=== PATIENT | male | born 1980 | race Asian ===

== ENCOUNTER 2018-11-19 10:55 | Emergency (ER) | payer OTHER ==
[2018-11-19 11:43] LABS: BASOPHILS # (AUTO) 0.1 10^3/uL (0.0-0.1); BASOPHILS % (AUTO) 1.1 %; EOSINOPHILS # (AUTO) 0.2 10^3/uL (0.0-0.7); EOSINOPHILS % (AUTO) 4.5 %; HGB - HEMOGLOBIN 16.8 g/dL (14.0-18.0); LYMPHOCYTES # (AUTO) 1.5 10^3/uL (1.5-3.5); LYMPHOCYTES % (AUTO) 32.3 %; MEAN CORPUSCULAR HEMOGLOBIN 32.4 pg (27.0-31.0); MEAN CORPUSCULAR HGB CONC 34.7 g/dL (32.0-36.0); MEAN CORPUSCULAR VOLUME 93.3 fL (80.0-94.0); MEAN PLATELET VOLUME 8.7 fL (7.4-11.4); MONOCYTES # (AUTO) 0.3 10^3/uL (0.0-1.0); MONOCYTES % (AUTO) 7.3 %; NEUTROPHILS # (AUTO) 2.5 10^3/uL (1.5-6.6); NEUTROPHILS % (AUTO) 54.6 %; PLT - PLATELET COUNT 221 10^3/uL (130-450); RED BLOOD COUNT 5.19 10^6/uL (4.70-6.10); RED CELL DISTRIBUTION WIDTH 11.8 % (12.0-15.0); WHITE BLOOD COUNT 4.7 x10^3/uL (4.8-10.8)
--- NOTE | 2018-11-19 11:50 | XRAY Report ---
Reason: chest pain Procedure Date: 11/19/2018 Accession Number: [id number] / [id number] Procedure: XR - Chest 1 View X-Ray CPT Code: 39345 FULL RESULT: EXAM: CHEST RADIOGRAPHY EXAM DATE: 11/19/2018 11:43 AM. CLINICAL HISTORY: Chest pain. COMPARISON: None. TECHNIQUE: 1 view. FINDINGS: Lungs/Pleura: No focal opacities evident. No pleural effusion. No pneumothorax. Mediastinum: Within exam limitations, the cardiomediastinal contour is normal. Other: None. IMPRESSION: Normal single view chest. RADIA
[2018-11-19 11:57] LABS: ALBUMIN 4.3 g/dL (3.2-5.5); ALBUMIN/GLOBULIN RATIO 1.4 (1.0-2.2); BILIRUBIN,TOTAL 1.2 mg/dL (0.2-1.0); CREATININE 1.1 mg/dL (0.6-1.2); TOTAL PROTEIN 7.4 g/dL (6.7-8.2)
--- NOTE | 2018-11-19 12:54 | ED Physician Documentation ---
History of Present Illness - Stated complaint Stated Complaint: HBP - Chief complaint Chief Complaint: General - History obtained from History obtained from: Patient - History of Present Illness Timing: Chronic (For many years now [place] in the range over 150/100. It is asymptomatic. They never started meds for it. 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 He has no acute complaints, no chest pain, shortness of breath, pedal edema, or urinary issues. He's never been on blood pressure medicine.) Review of Systems Constitutional: denies: Fever, Chills, Fatigue Nose: denies: Rhinorrhea / runny nose Cardiac: denies: Chest pain / pressure, Palpitations Respiratory: denies: Dyspnea PD PAST MEDICAL HISTORY - Past Medical History Past Medical History: No - Past Surgical History Past Surgical History: No - Present Medications Home Medications: Ambulatory Orders Medication Instructions Recorded Confirmed Lisinopril 10 mg PO DAILY #30 tablet 11/19/18 - Allergies Allergies/Adverse Reactions: Allergies Allergy/AdvReac Type Severity Reaction Status Date / Time No Known Drug Allergies Allergy Verified 11/19/18 11:04 - Social History Does the pt smoke?: No Smoking Status: Never smoker Does the pt drink ETOH?: Yes Does the pt have substance abuse?: No - Immunizations Immunizations are current?: Yes - POLST Patient has POLST: No PD ED PE NORMAL - Vitals Vital signs reviewed: Yes - General General: Alert and oriented X 3, No acute distress - HEENT HEENT: PERRL, EOMI - Neck Neck: Supple, no meningeal sign, No bony TTP - Cardiac Cardiac: RRR, No murmur - Respiratory Respiratory: No respiratory distress, Clear bilaterally - Abdomen Abdomen: Normal bowel sounds, Soft, Non tender - Back Back: No CVA TTP, No spinal TTP - Derm Derm: Normal color, Warm and dry - Extremities Extremities: No edema, No calf tenderness / cord - Neuro Neuro: Alert and oriented X 3, Normal speech Results - Vitals Vitals: Vital Signs - 24 hr 11/19/18 11/19/18 11:04 12:32 Temperature 36.6 C Heart Rate 66 67 Respiratory 15 14 Rate Blood Pressure 162/137 H 167/115 H O2 Saturation 99 100 Oxygen O2 Source Room air - EKG (time done) 1118 Rate: Rate (enter#) (69) Rhythm: NSR [place]: Normal Intervals: Normal OR QRS: Normal Ischemia: Normal ST segments Computer interpretation: Agree with computer - Labs Labs: Laboratory Tests 11/19/18 11/19/18 11:38 11:38 WBC 4.7 L RBC 5.19 Hgb 16.8 Hct 48.4 MCV 93.3 MCH 32.4 H MCHC 34.7 RDW 11.8 L Plt Count 221 MPV 8.7 Neut # (Auto) 2.5 Lymph # (Auto) 1.5 [place] # (Auto) 0.3 Eos # (Auto) 0.2 Baso # (Auto) 0.1 Absolute Nucleated RBC 0.00 Nucleated RBC % 0.0 Sodium 137 Potassium 3.9 Chloride 99 L Carbon Dioxide 29 Anion Gap 9.0 BUN 12 Creatinine 1.1 Estimated GFR (MDRD) 75 L Glucose 111 H Calcium 9.0 Total Bilirubin 1.2 H AST 42 ALT 75 H Alkaline Phosphatase 61 Total Protein 7.4 Albumin 4.3 Globulin 3.1 Albumin/Globulin Ratio 1.4 Lipase 32 PD MEDICAL DECISION MAKING - ED course ED course: This is a young man who has long-standing asymptomatic hypertension. He is taking a stimulant pre-workout drink and he is advised to stop that. Started on lisinopril pending follow-up. Departure - Departure Disposition: 01 Home, Self Care Clinical Impression: Essential hypertension Condition: Good Record reviewed to determine appropriate education?: Yes Instructions: ED Hypertension New Begin Tx Prescriptions: Lisinopril 10 mg PO DAILY #30 tablet Comments: FOLLOWUP WITH YOUR DOCTOR ON BASE WITHIN 1 WEEK FO BLOOD PRESSURE CHECK. RETURN FOR CHEST PAIN, SHORTNESS OF BREATH OR OTHER NEW ISSUES
[2018-11-19 13:00] VITALS: BP 157/117
== END 2018-11-19 12:59 | disposition home or self-care (01) ==
LOC: ED 10:55
DX: I10 Essential (primary) hypertension (principal)
CPT/HCPCS: 36415; 71045; 80053; 83690; 85025; 93005; 99284

== ENCOUNTER 2020-06-06 19:21 | Emergency (ER) | payer OTHER ==
[2020-06-06 19:27] VITALS: BP 170/100
--- OUTSIDE RECORDS SUMMARY | 2020-06-06 20:05 | EXTERNAL MEDICAL SUMMARY RPT | Continuity of Care Document ---
:1980 Demographics Phone Unavailable Preferred Language Unknown Marital Status Unknown Evangelical Affiliation Unknown Race Unknown Ethnic Group Unknown Author Organization [facility] Address [address] [place] [address] Phone Social History date description facility [phone]
--- NOTE | 2020-06-06 20:18 | XRAY Report ---
PROCEDURE: Knee 4 View LT INDICATIONS: L knee inj TECHNIQUE: 3 views of the left knee(s) were acquired. COMPARISON: None. FINDINGS: Bones: No fractures or dislocations. No suspicious bony lesions. Soft tissues: No joint effusion. No suspicious soft tissue calcifications. IMPRESSION: No trauma found, source of pain is not identified. Reviewed by: Rosalino Leal MD on 06/06/2020 8:17 PM PDT Approved by: Rosalino Leal MD on 06/06/2020 8:17 PM PDT Station ID: [id number]
[2020-06-06] MEDS ORDERED: HYDROcod/ACET 5/325 Prepack 4 PO STA (20:28)
--- NOTE | 2020-06-06 20:30 | ED Physician Documentation ---
PD HPI LOWER EXT INJURY - Stated complaint Stated Complaint: LEFT KNEE PX - Chief complaint Chief Complaint: Ext Problem - History obtained from History obtained from: Patient - Additional information Additional information: 40-year-old gentleman with history of ACL repair and meniscus repair on the right about 10 years ago. Tonight was playing basketball and twisted and felt a pop in the left knee. Now can barely walk on it. Pain is lateral. No other injuries. Review of Systems Constitutional: reports: Reviewed and negative Eyes: reports: Reviewed and negative Ears: reports: Reviewed and negative Nose: reports: Reviewed and negative Throat: reports: Reviewed and negative Cardiac: reports: Reviewed and negative Respiratory: reports: Reviewed and negative PD PAST MEDICAL HISTORY - Past Surgical History Past Surgical History: No - Present Medications Home Medications: Ambulatory Orders Medication Instructions Recorded Confirmed lisinopriL [Lisinopril] 10 mg PO DAILY #30 tablet 11/19/18 HYDROcod/ACETAM 5/325 [[place] 5/325] 1 - 2 tab PO Q6H PRN #10 tablet 06/06/20 Ibuprofen [Motrin] 800 mg PO Q8H PRN #10 tablet 06/06/20 - Allergies Allergies/Adverse Reactions: Allergies Allergy/AdvReac Type Severity Reaction Status Date / Time No Known Drug Allergies Allergy Verified 06/06/20 19:23 - Social History Does the pt smoke?: No Smoking Status: Never smoker Does the pt drink ETOH?: Yes Does the pt have substance abuse?: No - Immunizations Immunizations are current?: Yes - POLST Patient has POLST: No PD ED PE NORMAL - Vitals Vital signs reviewed: Yes - General General: Alert and oriented X 3, No acute distress - Extremities Extremities: Other (Left knee shows a modest effusion and mild lateral tenderness, ACL, PCL, LCL, MCL testing is painless and without laxity. Negative grind testing.) - Neuro Neuro: Alert and oriented X 3, Normal speech Results - Vitals Vitals: Vital Signs - 24 hr 06/06/20 19:23 Temperature 36.5 C Heart Rate 100 Respiratory 16 Rate Blood Pressure 170/100 H O2 Saturation 99 Oxygen O2 Source Room air - Rads (name of study) 4v L knee Radiology: EMP read contemporaneously (NAD) PD MEDICAL DECISION MAKING - ED course ED course: 40-year-old gentleman with with knee sprain, examination shows an effusion but no other evidence of severe ligamentous or meniscal injury. He was placed in a knee immobilizer. X-rays were normal. Orthopedic follow-up was advised. Departure - Departure Disposition: 01 Home, Self Care Clinical Impression: Internal derangement of knee joint Qualifiers: Laterality: left Qualified Code(s): M23.92 - Unspecified internal derangement of left knee Condition: Good Record reviewed to determine appropriate education?: Yes Instructions: ED Sprain Knee Collateral Ligaments Prescriptions: Ibuprofen [Motrin] 800 mg PO Q8H PRN #10 tablet PRN Reason: PAIN &/OR FEVER HYDROcod/ACETAM 5/325 [[place] 5/325] 1 - 2 tab PO Q6H PRN #10 tablet PRN Reason: Pain Comments: Your examination suggest against a serious internal injury of the left knee. The x-ray is normal. Unless rapidly better I recommend you follow-up with one of the orthopedic surgeons on [facility], Dr. Kwong or Dr. Horn. You can call the [facility] hospital tomorrow to make an appointment. Return for new or worsening symptoms. Forms: Activity restrictions Discharge Date/Time: 06/06/20 20:47
== END 2020-06-06 20:47 | disposition home or self-care (01) ==
LOC: ED 19:21
DX: M23.92 Unspecified internal derangement of left knee (principal)
CPT/HCPCS: 99283

== ENCOUNTER 2021-01-11 15:30 | Outpatient (CLI) | payer OTHER ==
[2021-01-11 16:23] VITALS: BP 134/78
--- NOTE | 2021-01-11 16:23 | SLEEP CARE CONSULTATION ---
Information from patient questionnaire entered by Robert Mcclendon MA. I have reviewed and concur with the information entered by Robert Mcclendon MA. This document represents the service I personally performed and the decisions made by me, Kelsea Marie ARNP. History of Present Illness Service Date and Time: 01/11/2021 1530 Reason for Visit: New patient (02/2014) Chief Complaint: reports: Unrefreshed sleep, Snoring, Excessive daytime sleepiness, Observed pauses in breathing, Fatigue, Frequent awakenings at night Date of Onset: 6 -7 years Usual bedtime: 10 - 11 pm Time it takes to fall asleep: 20 - 30 minutes Snores at night: Yes Observed to quit breathing while asleep: Yes Sleeps alone due to snoring: Yes Number of times waking at night: 6-8 Reasons for waking at night: reports: Snoring, Gasping for air, Other (unknown reasons) Toss, Turn, or Twitch while sleeping: Yes Recalls having dreams: Yes Usually gets out of bed at: 0700 - 0800 Feels refreshed in the morning: No Morning headache: Yes (almost every morning; gone after lunch, 2-4 pm) Sleepy or fatigued during the day: Yes Ever fallen asleep while driving: Yes (drowsy driving, fell asleep at stoplight, no accidents) Takes day naps: Yes (on weekends sometimes) Dreams during day naps: Yes Prior sleep studies: No Additional HPI information: I had the pleasure of seeing AUSTIN TRAORE today regarding the possibility of him having a sleep disorder. His current complaints are excessive daytime sleepiness, fatigue, frequent night awakenings, observed pauses in breathing, snoring and unrefreshed sleep. He has snored for a long time and is so loud his will sleep in a different room. She has seen him pauses in breathing and he has woke himself up snoring. He states he wakes up feeling tired even after a 6- 8 hours night of sleep. He is tired during the day and has fallen asleep when sitting at a stoplight once. - Parasomnia Symptoms Ever been unable to move upon waking from sleep: No Walks in sleep: No Talks in sleep: Yes Ever acted out dreams in sleep: Yes Ever felt weak in the knees when startled or emotional: Yes (has not fallen to ground, has felt like muscle weak/arms weak) Bothered by creepy, crawly, restless sensations in legs: No Problems with memory or concentration: Yes (both) Subjective Current [place] Sleepiness Scale score: 24 (in 2020) Past Medical History Past Medical History: reports: Hypertension Social History The patient's occupation is a . Patient is and lives in [place]. Have you smoked in the past 12 months: No Alcohol use: Yes Alcohol amount and frequency: 2 x month Caffeine use: Yes Caffeine amount and frequency: 2 x weekly Family History Family history of sleep disordered breathing: No Family Hx Sleep Apnea: Father: Snoring, Sibling: Snoring Allergies and Home Medications Drug allergies reviewed: Yes (NKDA) Home medication list reviewed: Yes Allergy and home medication list: Lisinopril 20 mg Laura, prn for allergies Review of Systems Cardiovascular: reports: high blood pressure Gastrointestinal: denies: heartburn Neurological: reports: headaches Ear/Nose/Throat: reports: dry mouth/throat (daily in the mornings), wisdom teeth removed. denies: injury to nose, tonsillectomy Endocrine: denies: thyroid disease Physical Exam Vital signs obtained and entered by: TE Bell Blood Pressure: 134/78 (left) Cuff size: wrist Heart Rate: 76 O2 Saturation: 98 (with mask) Height: 5 ft 7 in Weight: 147 lb (with boots) Body Mass Index: 23.0 BMI Classification: Healthy weight Neck circumference: 13.5 (inches) Mouth and throat: narrow oropharynx Soft palate: long Hard palate: normal Uvula: normal Uvula visualization: 50% Mallampati Class II Tongue: enlarged in size with teeth hudson on lateral edges Tonsils: small Neck: normal w/o lymphadenopathy or thyromegaly Heart: regular rate and rhythm Lungs: clear bilaterally Impression and Plan 1. Suspected Obstructive Sleep Apnea-Hypopnea Syndrome, as suggested by a history of loud and irregular snoring, observed cessation of breath while asleep, gasping or choking in sleep, morning headache, frequent awakening during the night, unrefreshed sleep, cognitive impairment, and excessive daytime sleepiness. Narrow oropharynx and obesity are common predisposing factors for obstructive sleep apnea-hypopnea syndrome. I recommend proceeding to polysomnography to confirm the diagnosis and to assess severity. If the patient has significant sleep disordered breathing, a manual CPAP titration study will also be performed to find the optimal treatment pressure. I informed the patient of what the sleep studies involve and after some discussion, obtained agreement to proceed. The pathophysiology of obstructive sleep apnea-hypopnea syndrome was discussed with the patient and health risks of cardiovascular and cerebrovascular disease if not treated. AAS brochure for obstructive sleep apnea-hypopnea syndrome given and reviewed. Risks of drowsy driving discussed in detail and patient advised to avoid long distance driving and to lathe puller at the first sign of drowsiness. Patient agreed to plan. * Schedule polysomnography +- manual CPAP titration study and return in 1-2 weeks after the study to discuss result and initiate therapy. * Avoid long distance driving or driving when feeling sleepy. * Avoid alcohol, sedative and muscle relaxant around bedtime. * Attempt to lose weight. * Review instructions provided by trained office staff on how to prepare for the sleep study. * Return for follow-up after sleep study completed. Counseling Topics: Weight control Visit Type: In Office Time Spent with Patient (minutes): 31 Provider Statement: I spent 100% of the Face to Face Visit with the patient with greater than 50% spent counseling the patient and coordination of care.
== END 2021-01-11 15:31 | disposition home or self-care (01) ==
LOC: SC 15:30
PROVIDERS: ATTEND Nurse Practitioner Family
DX: R06.83 Snoring (principal); R06.81 Apnea, not elsewhere classified; G47.8 Other sleep disorders; R51.9 Headache, unspecified; R41.89 Other symptoms and signs involving cognitive functions and awareness; G47.10 Hypersomnia, unspecified
CPT/HCPCS: 99203; 99212

== ENCOUNTER 2021-01-27 14:37 | Outpatient (CLI) | payer OTHER | END 2021-01-27 14:38 | disposition home or self-care (01) | LOC: SC 14:37 | PROVIDERS: ATTEND Nurse Practitioner Family | DX: G47.33 Obstructive sleep apnea (adult) (pediatric) (principal) | CPT/HCPCS: 95806 ==

== ENCOUNTER 2021-02-14 15:29 | Outpatient (CLI) | payer OTHER ==
[2021-02-14 16:09] VITALS: BP 123/84
--- NOTE | 2021-02-14 16:09 | SLEEP CARE CONSULTATION ---
Information from patient questionnaire entered by Robert Mcclendon MA. I have reviewed and concur with the information entered by Robert Mcclendon MA. This document represents the service I personally performed and the decisions made by , Kelsea Marie ARNP. History of Present Illness Service Date and Time: 02/14/2021 1529 Initial [place] Sleepiness Scale score: 23 (2020) Current [place] Sleepiness Scale score: 23 Additional HPI information: AUSTIN TRAORE returns for follow up and results of the recently performed home sleep study. I explained the pathophysiology behind obstructive sleep apnea. We then spent quite a bit of time discussing different treatment options. For mild obstructive sleep apnea, surgery and oral appliance are alternatives to nasal CPAP therapy but in moderate or severe cases, nasal CPAP is the most effective and reliable treatment. I reviewed the impact of weight changes on sleep apnea and strongly recommended losing weight. After some discussion, the patient opted to go with the nasal CPAP therapy. Nasal autoCPAP set at 4-15 cmH20 will be ordered with rationale explained. A manual titration study will be ordered if unable to find optimal pressure with office adjustments. I explained how CPAP machine works and what to expect when using the machine. Using CPAP every night in order to get used to it was emphasized. Patient advised to put CPAP mask on before getting into bed so as not to fall asleep without CPAP. To assist acclimation to CPAP use, it could also be used for a short time during day while reading or watching TV. The patient was instructed to call the CPAP supplier to discuss any mechanical problem that may occur. If the mask given is uncomfortable or is difficult to keep on through the night even with adjustment, contact the CPAP supplier as many will replace with another mask style if notified before 30 days. If snoring or perceives is not getting enough air or too much air from the machine, notify this office. AASM patient education PAP tips reviewed and given to patient. Patient counseled not drink alcohol less than 4 hours before bedtime as it can increase snoring and apnea. Patient was cautioned about risks of drowsy driving until sleepiness sy mptoms resolve. Sleep Study - Results Prior sleep studies: No Polysomnography/Home Sleep Study results: Physician Impression: The quality of the study is good. The length of the study is adequate (> 240 minutes). Please also see the tabulated and graphic data. 1. Obstructive Sleep Apnea-Hypopnea (ICD-10 G47.33), severe, with an AHI of 50.8/hr and jose SaO2 of 69%. During the study, the patient had 167 apneas (167 obstructive, 0 central, 0 mixed) and 69 hypopneas. The longest episode lasted 81.0 seconds. The respiratory events occurred independently of sleep stage and body position (supine AHI was 48.9 and non-supine, 75.00). 2. Hypoxemia (ICD-10 R09.02), moderate, with the lowest oxygen saturation of 69 % and 42.2 minutes with SaO2 under 90%. Baseline oxygen saturation was normal (Average oxygen saturation was 92%). Allergies and Home Medications Home medication list reviewed: Yes (no changes) Review of Systems Review of systems same as previous: Yes (no changes) Physical Exam Vital signs obtained and entered by: Portia DINHMA Blood Pressure: 123/84 Cuff size: wrist Heart Rate: 95 O2 Saturation: 99 Height: 5 ft 7 in Weight: 147 lb (w/o clothes) Body Mass Index: 23.0 BMI Classification: Healthy weight Impression and Plan 1. Obstructive Sleep Apnea-Hypopnea Syndrome, severe, with lowest oxygen saturation of 69%. Obviously this is the cause of the patients symptoms of unrefreshed sleep, and excessive daytime sleepiness. Positive pressure therapy could benefit hypertension. As mentioned above, the patient will be started on nasal autoCPAP therapy with pressure set at 5-20 cmH2O. A manual titration study will be completed if unable to find optimal treatment pressure with office adjustments. Compliance guidelines also reviewed. A copy of compliance guidelines will be given for reference at check out. 2. Hypoxemia, moderate, with the lowest oxygen saturation of 69 % and 42.2 minutes with SaO2 under 90%. His baseline oxygen saturation was normal with an average oxygen saturation of 92%. * Nasal auto CPAP therapy, pressure at 5-20 cm H2O. * Maintain a healthy weight. * Avoid alcohol consumption near bedtime. * Avoid supine sleep until using CPAP. * The patient is again cautioned about driving until sleepiness completely resolves. * Return one month after CPAP obtained. I will assess response to therapy and compliance at that time. Counseling Topics: Weight control Visit Type: In Office Time Spent with Patient (minutes): 20 Provider Statement: I spent 100% of the Face to Face Visit with the patient with greater than 50% spent counseling the patient and coordination of care.
== END 2021-02-14 15:30 | disposition home or self-care (01) ==
LOC: SC 15:29
PROVIDERS: ATTEND Nurse Practitioner Family
DX: G47.33 Obstructive sleep apnea (adult) (pediatric) (principal); R09.02 Hypoxemia
CPT/HCPCS: 99212; 99213

== ENCOUNTER 2021-04-19 13:50 | Outpatient (CLI) | payer OTHER ==
[2021-04-19 14:34] VITALS: BP 137/78
--- NOTE | 2021-04-19 14:34 | SLEEP CARE CONSULTATION ---
Information from patient questionnaire entered by Robert Mcclendon MA. I have reviewed and concur with the information entered by Robert Mcclendon MA. This document represents the service I personally performed and the decisions made by , Kelsea Marie ARNP. History of Present Illness Service Date and Time: 04/19/2021 1350 Previous diagnosis: Severe, Obstructive Sleep Apnea-Hypopnea Syndrome AHI: 50.8 Reason for follow up: first compliance (SET UP DATE 03/14/21, [facility]) Equipment type: CPAP Equipment obtained from: Other ([facility], [employer] intial supplies) Mask style: Nasal pillows Backup mask available: No (will keep old mask when replaced) Last cushion change: 10 days Prior sleep studies: Yes Year and Where: 01/2021 [facility] Type of Sleep Study: Home sleep study HPI additional information: AUSTIN TRAORE was diagnosed to have severe, AHI 50.8, obstructive sleep apnea- hypopnea syndrome and returned today for CPAP therapy first compliance follow- up. Sleep Study - Results Prior sleep studies: No CPAP Compliance Data - Data Reviewed with Patient Average duration of nightly device use: 5 hour 39 minutes Compliance rate %: 80 Current pressure setting (cmH2O): 5-20 (median 7.0, avg 9.4, max 10.4) Average residual AHI: 3.2 Central apnea: 0.2 Obstructive apnea: 2.5 Average large leak: 6.6 LPM Compliance data discussion: He has been able to wear the Cpap most nights. He states sometimes he has duty and will not take it with him. Subjective Missed days of use due to: reports: illness (allergies with nasal congestion), other (duty work, not taking with him) Patient concerns: denies: aerophagia, mask discomfort, air blowing in eyes, mask leak noise, condensation in mask/hose, nasal congestion, dry mouth, nose, throat, epistaxis Observed to snore while using device: No Current pressure setting perceived as: comfortable On therapy, patient: reports: sleeping better, awakening more refreshed, being more awake and alert during the day, more rested overall. denies: drowsiness while driving Initial [place] Sleepiness Scale score: 23 (2020) Current [place] Sleepiness Scale score: 20 (2021) Allergies and Home Medications Known drug allergies: No Drug allergies reviewed: Yes Home medication list reviewed: Yes (no changes) Allergy and home medication list: Allergies No Known Drug Allergies Allergy (Verified 06/06/20 19:23) Review of Systems Review of systems same as previous: Yes (no changes) Physical Exam Vital signs obtained and entered by: TE THOMAS Blood Pressure: 137/78 (LEFT, PULSE 83, RESP 14,) Cuff size: wrist Heart Rate: 78 O2 Saturation: 98 (PAPER MASK) Height: 5 ft 7 in Weight: 147 lb (WITH CLOTHES) Body Mass Index: 23.0 BMI Classification: Healthy weight Impression and Plan 1. Obstructive Sleep Apnea-Hypopnea Syndrome, severe, with good treatment compliance and good apnea control. On CPAP therapy, the patient has better sleep quality and is more rested overall. He states he had difficulty with the high pressures at first but after the first week he is now used to it and it is getting comfortable. He has allergies and will get some nasal congestion that limits ability to use the mask. Nasal congestion can be reduced with increasing the CPAP humidity. The heated hose can be adjusted higher if condensation with higher humidity setting. Saline nasal spray obtained OTC can be used prior to CPAP to clear nasal secretions and wash off any nasal allergens to facilitate nasal breathing. Patient's apnea severity and rationale for treatment to reduce apnea, improve sleep quality and reduce cardiovascular and cerebrovascular events was reviewed. I also reviewed the benefit of consistent device use of CPAP for hypertension. * Change auto CPAP pressure to 9-11 cmH2O * Notify me if snoring with mask or feeling that the pressure is too much or too little * Maintain a healthy weight * Call this office if any problems using CPAP * Return for follow up in 1-2 months, or sooner if concerns arise Counseling Topics: Weight control Visit Type: In Office Time Spent with Patient (minutes): 21 Provider Statement: I spent 100% of the Face to Face Visit with the patient with greater than 50% spent counseling the patient and coordination of care.
== END 2021-04-19 13:51 | disposition home or self-care (01) ==
LOC: SC 13:50
PROVIDERS: ATTEND Nurse Practitioner Family
DX: G47.33 Obstructive sleep apnea (adult) (pediatric) (principal)
CPT/HCPCS: 99212; 99213

== ENCOUNTER 2021-06-15 13:47 | Outpatient (CLI) | payer OTHER ==
[2021-06-15 14:32] VITALS: BP 139/70
--- NOTE | 2021-06-15 14:32 | SLEEP CARE CONSULTATION ---
Information from patient questionnaire entered by Robert Mcclendon MA. I have reviewed and concur with the information entered by Robert Mcclendon MA. This document represents the service I personally performed and the decisions made by , Kelsea Marie ARNP. History of Present Illness Service Date and Time: 06/15/2021 1347 Previous diagnosis: Severe, Obstructive Sleep Apnea-Hypopnea Syndrome AHI: 50.8 Reason for follow up: other (2 MONTH F/U, RESmED, horace 02/2021, ) Equipment type: CPAP Equipment obtained from: Other ([facility], getting supplies as needed) Mask style: Nasal pillows Backup mask available: No (will keep old mask when replaced) Last cushion change: 7 days ago Prior sleep studies: No Year and Where: 01/2021 [facility] Type of Sleep Study: Home sleep study HPI additional information: AUSTIN TRAORE was diagnosed to have severe, AHI 50.8, obstructive sleep apnea- hypopnea syndrome and returned today for CPAP therapy 2 month with pressure change follow-up. Sleep Study - Results Type of Sleep Study: Home sleep study Prior sleep studies: No Year and Where: 01/2021 [facility] CPAP Compliance Data - Data Reviewed with Patient Average duration of nightly device use: 6 HOURS 5 MINUTES Compliance rate %: 67 (60 days) Current pressure setting (cmH2O): 9-11 Average residual AHI: 0.9 Central apnea: .4 Obstructive apnea: .3 Average large leak: 12.5 Subjective Missed days of use due to: reports: illness (ALLERGIES) Patient concerns: reports: nasal congestion (allergies). denies: aerophagia, mask discomfort, air blowing in eyes, mask leak noise, condensation in m ask/hose, dry mouth, nose, throat, epistaxis, other Observed to snore while using device: No Current pressure setting perceived as: comfortable On therapy, patient: reports: sleeping better, awakening more refreshed, being more awake and alert during the day, more rested overall. denies: drowsiness while driving Initial [place] Sleepiness Scale score: 23 (2020) Current [place] Sleepiness Scale score: 20 Allergies and Home Medications Known drug allergies: No Drug allergies reviewed: Yes Home medication list reviewed: Yes (nasal spray for allergies) Allergy and home medication list: Allergies No Known Drug Allergies Allergy (Verified 06/06/20 19:23) Review of Systems Review of systems same as previous: Yes (no changes) Physical Exam Vital signs obtained and entered by: TE THOMAS Blood Pressure: 139/70 (RIGHT, PULSE 93, RESP 18, ) Heart Rate: 93 O2 Saturation: 98 Height: 5 ft 7 in Weight: 147 lb (PT CLOTHES) Body Mass Index: 23.0 BMI Classification: Healthy weight Impression and Plan 1. Obstructive Sleep Apnea-Hypopnea Syndrome, severe, with fair treatment compliance and excellent apnea control. On CPAP therapy, the patient has better sleep quality and is more rested overall. Austin's allergies came up fast and he was having some nasal congestion that limited his ability to use his CPAP mask. His doctor added a nasal spray to reduce nasal congestion and he is now using his machine consistently. I advised him that he can obtain a full face mask to use on days he has nasal congestion from allergies or illness. He voiced understanding and agreement. Patient's apnea severity and rationale for treatment to reduce apnea, improve sleep quality and reduce cardiovascular and cerebrovascular events was reviewed. I also reviewed the benefit of consistent device use of CPAP for hypertension. * Continue auto CPAP pressure at 9-11 cmH2O * Prescription for full face mask to keep on hand for allergy season * Notify me if snoring with mask or feeling that the pressure is too much or too little * Maintain a healthy weight * Call this office if any problems using CPAP * Return for follow up in 3 months, or sooner if concerns arise Counseling Topics: Spare mask, Weight control Visit Type: In Office Time Spent with Patient (minutes): 20 Provider Statement: I spent 100% of the Face to Face Visit with the patient with greater than 50% spent counseling the patient and coordination of care.
== END 2021-06-15 13:48 | disposition home or self-care (01) ==
LOC: SC 13:47
PROVIDERS: ATTEND Nurse Practitioner Family
DX: G47.33 Obstructive sleep apnea (adult) (pediatric) (principal)
CPT/HCPCS: 99212; 99213